=== PATIENT | female | born 1945 ===

== ENCOUNTER 2023-10-25 14:46 | Emergency (ER) | payer MEDICARE, OTHER ==
[~2023-10-25] VITALS: Ht 152.4 cm; Wt 81.8 kg
[2023-10-25 14:56] VITALS: TEMP 98.8
[2023-10-25] MEDS ORDERED: LEVO25TA9 PO (15:04)
[2023-10-25] MEDS ORDERED: CARV12 PO (15:04)
[2023-10-25] MEDS ORDERED: VITA180C2 PO (15:04)
[2023-10-25] MEDS ORDERED: FERR325T27 PO (15:04)
[2023-10-25] MEDS ORDERED: DOCU-385 PO (15:04)
[2023-10-25] MEDS ORDERED: CALC-1209 PO (15:04)
[2023-10-25] MEDS ORDERED: EMPA10TA3 PO (15:04)
[2023-10-25] MEDS ORDERED: ALLO-97 PO (15:04)
[2023-10-25] MEDS ORDERED: ATOR40TA28 PO (15:04)
[2023-10-25] MEDS ORDERED: GABA-1181 PO (15:04)
[2023-10-25] MEDS ORDERED: ACET-3385 PO (15:04)
[2023-10-25] MEDS ORDERED: RISP-32 PO (15:04)
[2023-10-25] MEDS ORDERED: BUME1TAB50 PO (15:04)
[2023-10-25] MEDS ORDERED: LANS-74 PO (15:04)
[2023-10-25] MEDS ORDERED: SERT-162 PO (15:04)
[2023-10-25] MEDS ORDERED: NITR0.4T52 SL (15:04)
[2023-10-25] MEDS ORDERED: HYDR10TA31 PO (15:04)
[2023-10-25] MEDS ORDERED: SIME80TA82 PO (15:04)
[2023-10-25 15:09] LABS: BASOPHILS % (AUTO) 0.2 % (0.0-2.0); HEMATOCRIT 27.1 % (36-46); HEMOGLOBIN 8.5 g/dL (12.0-16.0); LYMPHOCYTES # (AUTO) 0.8 K/uL (1.0-4.8); LYMPHOCYTES % (AUTO) 14.3 % (22.0-44.0); MEAN CORPUSCULAR HGB CONC 31.4 G/dL (31.0-37.0); MEAN CORPUSCULAR VOLUME 102 fL (80-100); MONOCYTES # (AUTO) 0.5 K/uL (0.1-1.0); MONOCYTES % (AUTO) 8.8 % (2.0-9.0); NEUTROPHILS # (AUTO) 4.2 K/uL (1.8-7.7); NEUTROPHILS % (AUTO) 74.7 % (40.0-70.0); PLATELET COUNT (AUTO) 180 K/uL (150-450); RED BLOOD CELL COUNT(AUTO) 2.66 MIL/uL (4.00-5.20); RED CELL DISTRIBUTION WIDTH 16.4 % (11.5-14.5); WHITE BLOOD COUNT (AUTO) 5.6 K/uL (4.5-11.0)
[2023-10-25 15:18] LABS: CREATININE 3.95 mg/dL (0.60-1.30); POTASSIUM 3.9 mmol/L (3.5-5.1)
[2023-10-25 15:26] LABS: TROPONIN I-HIGH SENSITIVITY 13 ng/L (<51)
[2023-10-25 18:11] LABS: RBC MORPHOLOGY COMMENT ABNORMAL RBC MORPH
[2023-10-25 18:18] LABS: APPEARANCE,URINE CLEAR (CLEAR); BILIRUBIN,URINE NEGATIVE (NEGATIVE); COLOR,URINE LIGHT YELLOW (YELLOW); GLUCOSE, URINE (UA) 300-500 mg/dL (NEGATIVE); KETONES,URINE NEGATIVE (NEGATIVE); LEUKOCYTE ESTERASE ,URINE NEGATIVE (NEGATIVE); NITRATE,URINE NEGATIVE (NEGATIVE); OCCULT BLOOD,URINE NEGATIVE (NEGATIVE); PH,URINE 5.5 (5.0-8.0); PROTEIN,URINE 100-200,SEE CONFIRM mg/dL (NEGATIVE); SPECIFIC GRAVITIY, URINE 1.017 (1.003-1.030); UROBILINOGEN,URINE <=1.0 mg/dL (<=1.0)
[2023-10-25] MEDS: BUMETANIDE 1 MG TABLET PO ONE (18:22)
[2023-10-25 18:36] LABS: BACTERIA,URINE None Seen /HPF (None Seen); RBC,URINE None Seen /HPF (0-2); SULFOSALICYLIC ACID,URINE 4+ (Negative); WBC,URINE 0-2 /HPF (0-5)
[2023-10-25 20:26] VITALS: BP 131/74; PULSE 95; RESP 22
== END 2023-10-25 20:28 | disposition home or self-care (01) ==
LOC: EMS 14:46
DX: R41.82 Altered mental status, unspecified (principal); M24.411 Recurrent dislocation, right shoulder; R06.02 Shortness of breath; F41.9 Anxiety disorder, unspecified; F32.A Depression, unspecified; E78.00 Pure hypercholesterolemia, unspecified; E03.9 Hypothyroidism, unspecified; I11.0 Hypertensive heart disease with heart failure; I50.9 Heart failure, unspecified; Z88.0 Allergy status to penicillin; Z88.8 Allergy status to other drugs, medicaments and biological substances
CPT/HCPCS: 71045; 80048; 81001; 81002; 83880; 84484; 85025; 93005; 99285; 36415-L1; 36415-TC